=== PATIENT | female | born 1935 | race Caucasian/White ===

== ENCOUNTER → 2023-01-02 | Outpatient (CLI) | payer MEDICARE | LOC: M SLEEP 20:00 | PROVIDERS: ATTEND Physician Assistant | DX: G47.33 Obstructive sleep apnea (adult) (pediatric) (principal) ==

== ENCOUNTER → 2023-05-18 | Outpatient (CLI) | payer MEDICARE | LOC: M SLEEP 20:00 | PROVIDERS: ATTEND Physician Assistant | DX: G47.33 Obstructive sleep apnea (adult) (pediatric) (principal) ==

== ENCOUNTER 2024-01-21 06:36 | Day surgery (SDC) | payer MEDICARE ==
[~2024-01-21] VITALS: Ht 152.4 cm; Wt 75.3 kg
[~2024-01-21 06:36] MED LIST: CALC600T61 PO; ELIQ5TAB PO; JARD1TAB PO; LATA1DRO OU; METO1TAB33 PO; PHENYLEPHRINE 10% OPHTH SOL 5ML OD PRN; THERTAB52 PO; TIMO0.5S20 OU; TROPICAMIDE 1% OPHTH SOLN 15ML OD SCH; ZINC220CA PO
[2024-01-21] MEDS: ATROPINE SULFATE 1% OPHTH SOLN 2ML BTL OD SCH (08:14)
[2024-01-21] MEDS: PHENYLEPHRINE 2.5% OPHTH SOL 2ML OD SCH (08:14)
[2024-01-21] MEDS: OFLOXACIN 0.3 % (OCUFLOX) OPTH SOL 5ML OD ONE (08:14)
[2024-01-21] MEDS: LIDOCAINE 3.5 % 1ML OPHTH TOPICAL GEL OU ONE (08:14)
[2024-01-21] MEDS ORDERED: MIDAZOLAM INJ 2MG/2ML VIAL As Ordered ONE (09:16)
[2024-01-21] MEDS ORDERED: fentaNYL 100 MCG/2 ML INJECTION As Ordered ONE (09:16)
[2024-01-21] MEDS: LIDOCAINE 1% SDV 5ML VIAL As Ordered ONE (09:18)
[2024-01-21] MEDS: DUOVISC (0.50ML VISCOAT/0.85ML PROVISC) OPHTH KIT As Ordered ONE (09:20)
[2024-01-21] MEDS: BSS IRRIG/VANCO(10MG)/TOBRA(5MG)/EPINEPH(1:1000-0.5CC)500ML BAG-ORONLY As Ordered ONE (09:24)
[2024-01-21] MEDS: CEFUROXIME 1MG/0.1ML INTRACAMERAL INJ As Ordered ONE (09:25)
[2024-01-21 09:40] VITALS: BP 167/77; TEMP 97.6; O2SAT 96
== END 2024-01-21 09:58 | disposition home or self-care (01) ==
LOC: M SDC 06:36
PROVIDERS: ATTEND Ophthalmology
DX: H25.11 Age-related nuclear cataract, right eye (principal); H40.811 Glaucoma with increased episcleral venous pressure, right eye; I48.91 Unspecified atrial fibrillation; Z95.0 Presence of cardiac pacemaker; I10 Essential (primary) hypertension; E11.9 Type 2 diabetes mellitus without complications; K58.8 Other irritable bowel syndrome; Z88.0 Allergy status to penicillin; L40.9 Psoriasis, unspecified; G47.33 Obstructive sleep apnea (adult) (pediatric); Z79.01 Long term (current) use of anticoagulants; Z79.899 Other long term (current) drug therapy
CPT/HCPCS: 66988; C1783; J0697; J2250; J3010; V2632

== ENCOUNTER 2024-02-25 07:45 | Day surgery (SDC) | payer MEDICARE ==
[~2024-02-25] VITALS: Ht 152.4 cm; Wt 74.5 kg
[~2024-02-25 07:45] MED LIST changes: -PHENYLEPHRINE 10% OPHTH SOL 5ML OD PRN; +PHENYLEPHRINE 10% OPHTH SOL 5ML OS PRN; -TROPICAMIDE 1% OPHTH SOLN 15ML OD SCH
[2024-02-25] MEDS ORDERED: fentaNYL 100 MCG/2 ML INJECTION As Ordered ONE (08:03)
[2024-02-25] MEDS ORDERED: MIDAZOLAM INJ 2MG/2ML VIAL As Ordered ONE (08:03)
[2024-02-25] MEDS: PHENYLEPHRINE 2.5% OPHTH SOL 2ML OS SCH (08:18)
[2024-02-25] MEDS: LIDOCAINE 3.5 % 1ML OPHTH TOPICAL GEL OU ONE (08:18)
[2024-02-25] MEDS: ATROPINE SULFATE 1% OPHTH SOLN 2ML BTL OS SCH (08:18)
[2024-02-25] MEDS: TROPICAMIDE 1% OPHTH SOLN 15ML OS SCH (08:18)
[2024-02-25] MEDS: OFLOXACIN 0.3 % (OCUFLOX) OPTH SOL 5ML OS ONE (08:18)
[2024-02-25] MEDS: BSS IRRIG/VANCO(10MG)/TOBRA(5MG)/EPINEPH(1:1000-0.5CC)500ML BAG-ORONLY As Ordered ONE (09:01)
[2024-02-25] MEDS: CEFUROXIME 1MG/0.1ML INTRACAMERAL INJ As Ordered ONE (09:02)
[2024-02-25] MEDS: LIDOCAINE 1% SDV 5ML VIAL As Ordered ONE (09:02)
[2024-02-25 09:10] VITALS: BP 151/67; TEMP 98.5; O2SAT 97
== END 2024-02-25 09:25 | disposition home or self-care (01) ==
LOC: M SDC 07:45
PROVIDERS: ATTEND Ophthalmology
DX: H40.1122 Primary open-angle glaucoma, left eye, moderate stage (principal); E11.36 Type 2 diabetes mellitus with diabetic cataract; H25.12 Age-related nuclear cataract, left eye; I48.0 Paroxysmal atrial fibrillation; I11.0 Hypertensive heart disease with heart failure; I50.30 Unspecified diastolic (congestive) heart failure; I25.10 Atherosclerotic heart disease of native coronary artery without angina pectoris; Z79.01 Long term (current) use of anticoagulants; Z95.0 Presence of cardiac pacemaker; Z79.899 Other long term (current) drug therapy; G47.33 Obstructive sleep apnea (adult) (pediatric); Z86.73 Personal history of transient ischemic attack (TIA), and cerebral infarction without residual deficits; K58.9 Irritable bowel syndrome, unspecified; Z88.0 Allergy status to penicillin
CPT/HCPCS: 66991; C1783; J0697; J2250; J3010; V2632